=== PATIENT | female | born 1995 | race Caucasian/White ===

== ENCOUNTER 2018-08-10 18:36 | Inpatient (IN) | payer BC ==
[2018-08-10 19:44] LABS: ADD MAN DIFF? NO
[2018-08-10 19:45] LABS: BASOPHILS % 0.3 % (0.0-2.0); EOSINOPHILS # 0.1 10^3/ul (0.0-0.5); EOSINOPHILS % 0.7 % (0.0-7.0); HEMATOCRIT 29.6 % (37.0-47.0); HEMOGLOBIN 9.3 g/dl (12.0-16.0); LYMPHOCYTES % 17.2 % (15.0-51.0); MEAN CORPUSCULAR HEMOGLOBIN 23.8 pg (29.0-33.0); MEAN CORPUSCULAR HGB CONC 31.4 g/dl (32.0-37.0); MEAN CORPUSCULAR VOLUME 75.9 fl (82.0-101.0); MEAN PLATELET VOLUME 10.2 fl (7.4-10.4); MONOCYTE # 0.8 10^3/ul (0.3-0.9); MONOCYTES % 6.9 % (0.0-11.0); NEUTROPHIL # 8.6 10^3/ul (1.6-7.5); NEUTROPHILS % 73.9 % (39.0-77.0); PLATELET COUNT 212 10^3/UL (140-415); RED CELL DISTRIBUTION WIDTH 15.4 % (11.5-14.5)
[2018-08-10 19:45] LABS: WHITE BLOOD COUNT 11.7 10^3/ul (4.8-10.8)
[2018-08-10 20:05] LABS: INR 0.95; PROTIME 12.8 Sec (11.9-14.9)
[2018-08-10 20:06] LABS: PARTIAL THROMBOPLASTIN TIME 25.5 Sec (23.0-35.0)
[2018-08-10 20:07] LABS: ALANINE AMINOTRANSFERASE 13 IU/L (13-69); ALBUMIN 3.6 g/dl (3.3-4.9); ALBUMIN/GLOBULIN RATIO 1.12; ALKALINE PHOSPHATASE 104 IU/L (42-121); ANION GAP 10 (5-13); ASPARTATE AMINO TRANSFERASE 15 IU/L (15-46); BILIRUBIN,INDIRECT 0.2 mg/dl (0-1.1); BILIRUBIN,TOTAL 0.2 mg/dl (0.2-1.3); BLOOD UREA NITROGEN 11 mg/dl (7-20); CALCIUM 8.9 mg/dl (8.4-10.2); CARBON DIOXIDE 20 mmol/L (21-31); CHLORIDE 108 mmol/L (97-110); CREATININE 0.56 mg/dl (0.44-1.00); Estimated GFR > 60 mL/min (>60); GLUCOSE 76 mg/dl (70-220); POTASSIUM 3.6 mmol/L (3.5-5.1); SODIUM 138 mmol/L (135-144); TOTAL PROTEIN 6.8 g/dl (6.1-8.1); URIC ACID 5.3 mg/dl (3.1-7.9)
[2018-08-10 20:18] LABS: FIBRIN SPLIT PRODUCT <10 ug/ml (<10)
[2018-08-10 20:34] LABS: ADD UMIC YES; UR ASCORBIC ACID NEGATIVE (NEGATIVE); UR BACTERIA FEW /HPF (NONE SEEN); UR BILIRUBIN (Dip) NEGATIVE (NEGATIVE); UR BLOOD (Dip) NEGATIVE (NEGATIVE); UR CLARITY SLIGHTLY CLOUDY (CLEAR); UR COLOR YELLOW (YELLOW); UR GLUCOSE (Dip) NEGATIVE (NEGATIVE); UR KETONES (Dip) NEGATIVE (NEGATIVE); UR LEUKOCYTE ESTERASE (Dip) 1+ Leu/ul (NEGATIVE); UR MUCUS FEW /HPF (NONE SEEN); UR NITRITE (Dip) NEGATIVE (NEGATIVE); UR RBC 4 /HPF (0-5); UR SPECIFIC GRAVITY (Dip) 1.027 (1.003-1.030); UR SQUAMOUS EPITHELIAL CELL FEW /HPF (FEW); UR TOTAL PROTEIN (Dip) NEGATIVE (NEGATIVE); UR UROBILINOGEN (Dip) NEGATIVE (NEGATIVE); UR WBC 13 /HPF (0-5)
[2018-08-10] MEDS: ACETAMINOPHEN 500 MG TAB PO (23:41)
== END 2018-08-11 11:52 | disposition home or self-care (01) | DRG 833 ==
LOC: OBT 18:36 → L-D 08-11 00:01 → PP1 08-11 00:05 → OBT 22:15 → PP1 22:15
DX: O13.3 Gestational [pregnancy-induced] hypertension without significant proteinuria, third trimester (principal); Z3A.36 36 weeks gestation of pregnancy
CPT/HCPCS: 76815; 76818; 80053; 81001; 84560; 85025; 85362; 85384; 85610; 85730

== ENCOUNTER 2018-08-25 12:27 | Inpatient (IN) | payer BC ==
[2018-08-25] MEDS ORDERED: CARBOPROST 250 MCG INJ IM (13:00)
[2018-08-25] MEDS ORDERED: MISOPROSTOL 200 MCG TAB PR ×2 (13:00→15:30)
[2018-08-25] MEDS ORDERED: METHYLERGONOVINE 0.2 MG INJ IM (13:00)
[2018-08-25] MEDS ORDERED: OXYTOCIN 30 UNITS/LR 500 ML IV ×3 (13:00→16:20)
[2018-08-25] MEDS: CITRIC ACID/NA CITRATE 30 ML CUP PO (13:00)
[2018-08-25] MEDS ORDERED: CEFAZOLIN 2 GM/50 ML (PMX) 50 ML IVPB (13:00)
[2018-08-25] MEDS: LACTATED RINGER'S 1,000 ML IV ×2 (13:15→20:40)
[2018-08-25 13:54] LABS: ADD MAN DIFF? NO
[2018-08-25 13:57] LABS: WHITE BLOOD COUNT 14.7 10^3/ul (4.8-10.8)
[2018-08-25 13:57] LABS: BASOPHILS % 0.3 % (0.0-2.0); EOSINOPHILS % 0.2 % (0.0-7.0); HEMATOCRIT 30.1 % (37.0-47.0); HEMOGLOBIN 9.4 g/dl (12.0-16.0); LYMPHOCYTES # 1.9 10^3/ul (0.8-2.9); LYMPHOCYTES % 12.8 % (15.0-51.0); MEAN CORPUSCULAR HEMOGLOBIN 23.4 pg (29.0-33.0); MEAN CORPUSCULAR HGB CONC 31.2 g/dl (32.0-37.0); MEAN CORPUSCULAR VOLUME 75.1 fl (82.0-101.0); MEAN PLATELET VOLUME 10.1 fl (7.4-10.4); MONOCYTE # 0.8 10^3/ul (0.3-0.9); MONOCYTES % 5.6 % (0.0-11.0); NEUTROPHIL # 11.7 10^3/ul (1.6-7.5); NEUTROPHILS % 79.7 % (39.0-77.0); PLATELET COUNT 234 10^3/UL (140-415); RED BLOOD COUNT 4.01 10^6/ul (4.20-5.40); RED CELL DISTRIBUTION WIDTH 15.4 % (11.5-14.5)
[2018-08-25 14:14] LABS: ALANINE AMINOTRANSFERASE 14 IU/L (13-69); ALBUMIN 3.4 g/dl (3.3-4.9); ALBUMIN/GLOBULIN RATIO 1.17; ALKALINE PHOSPHATASE 111 IU/L (42-121); ANION GAP 9 (5-13); ASPARTATE AMINO TRANSFERASE 15 IU/L (15-46); BILIRUBIN,INDIRECT 0.3 mg/dl (0-1.1); BILIRUBIN,TOTAL 0.3 mg/dl (0.2-1.3); BLOOD UREA NITROGEN 9 mg/dl (7-20); CARBON DIOXIDE 20 mmol/L (21-31); CHLORIDE 109 mmol/L (97-110); CREATININE 0.49 mg/dl (0.44-1.00); Estimated GFR > 60 mL/min (>60); GLUCOSE 72 mg/dl (70-220); POTASSIUM 3.9 mmol/L (3.5-5.1); SODIUM 138 mmol/L (135-144); TOTAL PROTEIN 6.3 g/dl (6.1-8.1); URIC ACID 4.9 mg/dl (3.1-7.9)
[2018-08-25 14:15] LABS: INR 0.98; PROTIME 13.1 Sec (11.9-14.9)
[2018-08-25 14:16] LABS: PARTIAL THROMBOPLASTIN TIME 25.2 Sec (23.0-35.0)
[2018-08-25 14:44] LABS: HEPATITIS B SURFACE ANTIGEN NEGATIVE (NEGATIVE)
[2018-08-25] MEDS ORDERED: KETOROLAC 30 MG INJ (15:03)
[2018-08-25] MEDS ORDERED: morphine SULFATE/PF (10 MG/10 ML) INJ (15:03)
[2018-08-25] MEDS ORDERED: METOCLOPRAMIDE 10 MG INJ (15:03)
[2018-08-25] MEDS ORDERED: ONDANSETRON 4 MG INJ (15:03)
[2018-08-25 15:05] LABS: RAPID PLASMA REAGIN NONREACTIVE (NR)
[2018-08-25] MEDS ORDERED: LACTATED RINGER'S 1,000 ML IV (15:10)
[2018-08-25] MEDS ORDERED: CEFAZOLIN 1 GM INJ (15:17)
[2018-08-25] MEDS ORDERED: NA PHOSPHATE/BIPHOS 133 ML ENEMA PR (15:30)
[2018-08-25] MEDS ORDERED: LANOLIN HPA 1 PKT TOP (15:30)
[2018-08-25] MEDS ORDERED: OXYCODONE/ACETAMINOPHEN (5/325) TAB PO ×2 (15:30)
[2018-08-25] MEDS: OXYTOCIN 30 UNITS/LR 500 ML IV ×2 (16:46→19:17)
[2018-08-25] MEDS: IBUPROFEN 600 MG TAB PO ×2 (18:00→23:32)
[2018-08-25] MEDS ORDERED: ONDANSETRON 4 MG INJ IV ×2 (20:00)
[2018-08-25] MEDS ORDERED: morphine (1 MG/ML) 10ML SYRINGE IV ×3 (20:00)
[2018-08-25] MEDS ORDERED: KETOROLAC 30 MG INJ IV (20:00)
[2018-08-25] MEDS ORDERED: DIPHENHYDRAMINE 50 MG INJ IV ×2 (20:00)
[2018-08-25] MEDS ORDERED: morphine 2 MG INJ IV ×3 (20:00)
[2018-08-25] MEDS ORDERED: NALOXONE (0.4 MG/ML) INJ IV (20:00)
[2018-08-25] MEDS: SENNA/DOCUSATE NA (8.6MG/50MG) TAB PO (21:00)
[2018-08-26] MEDS: LACTATED RINGER'S 1,000 ML IV ×2 (00:13→08:01)
[2018-08-26] MEDS: IBUPROFEN 600 MG TAB PO ×4 (05:30→23:46)
[2018-08-26 06:57] LABS: ADD MAN DIFF? NO
[2018-08-26 07:01] LABS: BASOPHILS % 0.2 % (0.0-2.0); EOSINOPHILS # 0.1 10^3/ul (0.0-0.5); EOSINOPHILS % 0.7 % (0.0-7.0); HEMATOCRIT 28.1 % (37.0-47.0); HEMOGLOBIN 8.8 g/dl (12.0-16.0); LYMPHOCYTES # 1.2 10^3/ul (0.8-2.9); MEAN CORPUSCULAR HEMOGLOBIN 23.4 pg (29.0-33.0); MEAN CORPUSCULAR HGB CONC 31.3 g/dl (32.0-37.0); MEAN CORPUSCULAR VOLUME 74.7 fl (82.0-101.0); MEAN PLATELET VOLUME 10.5 fl (7.4-10.4); MONOCYTES % 8.3 % (0.0-11.0); NEUTROPHIL # 9.7 10^3/ul (1.6-7.5); NEUTROPHILS % 80.1 % (39.0-77.0); PLATELET COUNT 206 10^3/UL (140-415); RED BLOOD COUNT 3.76 10^6/ul (4.20-5.40); RED CELL DISTRIBUTION WIDTH 15.5 % (11.5-14.5)
[2018-08-26 07:01] LABS: WHITE BLOOD COUNT 12.1 10^3/ul (4.8-10.8)
[2018-08-26] MEDS: SENNA/DOCUSATE NA (8.6MG/50MG) TAB PO ×2 (09:03→21:55)
[2018-08-26] MEDS: KETOROLAC 30 MG INJ IV (10:09)
[2018-08-26] MEDS: POLYSACCHARIDE IRON COMPLEX CAP PO (21:55)
[2018-08-27] MEDS: IBUPROFEN 600 MG TAB PO ×2 (05:39→11:41)
[2018-08-27] MEDS: POLYSACCHARIDE IRON COMPLEX CAP PO (09:26)
[2018-08-27] MEDS: SENNA/DOCUSATE NA (8.6MG/50MG) TAB PO (09:26)
[2018-08-28] MEDS ORDERED: MEASLES,MUMPS,RUBELLA VACCINE INJ SC* (09:00)
[2018-08-28] MEDS ORDERED: DIPHTH/TET/ACEL PERTUSS (ADULT) 0.5 ML VIAL IM* (09:00)
== END 2018-08-27 13:06 | disposition home or self-care (01) | DRG 785 ==
LOC: L-D 12:27 → PP1 20:01
PROC: 10D00Z1 Extraction of Products of Conception, Low, Open Approach (ICD-10-PCS; principal; 2018-08-25 14:00)
PROC: 0UB70ZZ Excision of Bilateral Fallopian Tubes, Open Approach (ICD-10-PCS; 2018-08-25 14:00)
DX: O14.94 Unspecified pre-eclampsia, complicating childbirth (principal); O34.219 Maternal care for unspecified type scar from previous cesarean delivery; O99.214 Obesity complicating childbirth; E66.9 Obesity, unspecified; O99.02 Anemia complicating childbirth; D64.9 Anemia, unspecified; G89.18 Other acute postprocedural pain; Z3A.38 38 weeks gestation of pregnancy; Z37.0 Single live birth; Z30.2 Encounter for sterilization
CPT/HCPCS: 80053; 84560; 85025; 85384; 85610; 85730; 86592; 86850; 86900; 86901; 87340; 88302; 99464